=== PATIENT | female | born 1965 | race Caucasian/White ===

== ENCOUNTER 2017-04-07 01:48 | Observation (INO) | payer MEDICAID, OTHER ==
--- NOTE | 2017-04-07 02:17 | ED PDOC ---
Arrival/HPI - General Chief Complaint: Abdominal Pain Time Seen by Provider: 04/07/17 01:54 Historian: Patient - History of Present Illness Narrative History of Present Illness (Text): 04/07/17 02:10 Ivory Tian is a 51 year old female, who denies any significant past medical history, who presents to the Emergency department complaining of chest pain/epigastric pain for 1 hour. Patient denies any fever, chills, shortness of breath, nausea, vomiting, diarrhea, urinary symptoms, back pain, neck pain, headache, dizziness, or any other complaints. Time/Duration: 1 hour Symptom Onset: Gradual Symptom Course: Unchanged Activities at Onset: Rest, Light Context: Home Past Medical History - Provider Review Nursing Documentation Reviewed: Yes - Psychiatric Hx Substance Use: No Family/Social History - Physician Review Nursing Documentation Reviewed: Yes Family/Social History: Unknown Family HX Smoking Status: Never Smoked Hx Alcohol Use: No Hx Substance Use: No Allergies/Home Meds Allergies/Adverse Reactions: Allergies No Known Allergies Allergy (Verified 04/07/17 01:52) Home Medications: Home Meds Medication Instructions Recorded Confirmed No Known Home Med 04/07/17 04/07/17 Review of Systems - Physician Review All systems were reviewed & negative as marked: Yes - Review of Systems Constitutional: Normal. absent: Fevers Eyes: Normal ENT: Normal Respiratory: Normal. absent: SOB, Cough Cardiovascular: Chest Pain Gastrointestinal: Abdominal Pain. absent: Diarrhea, Vomiting Genitourinary Female: Normal. absent: Dysuria, Frequency, Hematuria, Urine Output Changes Musculoskeletal: Normal. absent: Back Pain, Neck Pain Skin: Normal. absent: Rash Neurological: Normal. absent: Headache, Dizziness Endocrine: Normal Hemo/Lymphatic: Normal Psychiatric: Normal Physical Exam Vital Signs Reviewed: Yes Vital Signs Temp Pulse Resp BP Pulse Ox 04/07/17 01:52 97.9 F 66 18 146/87 100 Temperature: Afebrile Blood Pressure: Normal Pulse: Regular Respiratory Rate: Normal Appearance: Positive for: Well-Appearing, Non-Toxic, Comfortable Pain Distress: None Mental Status: Positive for: Alert and Oriented X 3 - Systems Exam Head: Present: Atraumatic, Normocephalic Pupils: Present: PERRL Extroacular Muscles: Present: EOMI Conjunctiva: Present: Normal Mouth: Present: Moist Mucous Membranes Neck: Present: Normal Range of Motion Respiratory/Chest: Present: Clear to Auscultation, Good Air Exchange. No: Respiratory Distress, Accessory Muscle Use Cardiovascular: Present: Regular Rate and Rhythm, Normal S1, S2. No: Murmurs Abdomen: Present: Tenderness (RUQ/epigastric tenderness), Normal Bowel Sounds. No: Distention, Peritoneal Signs Back: Present: Normal Inspection Upper Extremity: Present: Normal Inspection. No: Cyanosis, Edema Lower Extremity: Present: Normal Inspection. No: Edema Neurological: Present: GCS=15, CN II-XII Intact, Speech Normal Skin: Present: Warm, Dry, Normal Color. No: Rashes Psychiatric: Present: Alert, Oriented x 3, Normal Insight, Normal Concentration Medical Decision Making ED Course and Treatment: 04/07/17 02:10 Impression: 51 year old female complaining of chest pain/epigastric pain for 1 hour. Differential Diagnosis included but are not limited to: biliary colic vs. cholecystitis Plan: -- US Gallbladder and Pancreas -- EKG -- Labs, cardiac enzymes, lipase -- IV fluids -- Zofran -- Pepcid -- Morphine -- Reassess and disposition Progress Notes: Reviewed EKG, NSR at 60 bpm[address] Non-specific ST/T wave changes. 04/07/17 04:21 Reviewed sono, US Abdomen shows: There is a negative sonographic Tripp's sign per certified ophthalmic technologist. Gallstones are present. There is a 9 mm echogenic structure along the gallbladder wall that does not exhibit shadowing suggesting it represents a polyp. There is pericholecystic fluid. There are no gallbladder wall measurement submitted. The common bile duct measures 5 mm which is within normal limits. The liver is normal and measures 15.7 cm in length.. The pancreas is normal. No right hydronephrosis. The right kidney measures 11 cm in length. IMPRESSION: Cholelithiasis with pericholecystic fluid, the presence of which is concerning for cholecystitis. HIDA scan may be helpful for confirmation if clinically indicated. 04/07/17 04:32 Case discussed with expert medical writer, who is aware and agrees with plan. 04/07/17 04:[address] Mendez, who is aware and agrees with plan. [facility] colic and cholecystitis. - Lab Interpretations Lab Results: 04/07/17 02:15 04/07/17 02:20 Lab Results 04/07/17 03:35: PT 11.9 H, INR 1.10 H, APTT 24.8 04/07/17 02:20: Sodium 142, Potassium 4.1, Chloride 101, Carbon Dioxide 27, Anion Gap 18, BUN 19, Creatinine 0.6, Est GFR ( Amer) > 60, Est GFR (Non- Af Amer) > 60, Random Glucose 109, Calcium 9.2, Total Bilirubin 0.4, AST 108 H, ALT 50, Alkaline Phosphatase 77, Lactate Dehydrogenase 707 H, Total Creatine Kinase 59, Troponin I < 0.01, Total Protein 6.9, Albumin 4.1, Globulin 2.8, Albumin/Globulin Ratio 1.5, Lipase 218 04/07/17 02:15: WBC 8.5, RBC 4.22, Hgb 12.2, Hct 34.9 L, MCV 82.7, MCH 28.9, MCHC 35.0, RDW 12.4, Plt Count 207, MPV 11.2 H I have reviewed the lab results: Yes - RAD Interpretation Radiology Orders: 04/07/17 02:19 GALLBLADDER & PANCREAS [US] Stat 04/07/17 04:24 CHEST PORTABLE [RAD] Stat Library Circulation Assistant: Radiologist - EKG Interpretation Interpreted by ED Physician: Yes Type: 12 lead EKG - Medication Orders Current Medication Orders: Sodium Chloride (Sodium Chloride 0.9%) 1,000 mls @ 100 mls/hr IV .Q10H JOSSELYN Last Admin: 04/07/17 02:23 Dose: 100 mls/hr Ceftriaxone Sodium (Rocephin 1 Gram Ivpb) 100 mls @ 200 mls/hr IV ONCE STA PRN Reason: Protocol Stop: 04/07/17 05:15 Morphine Sulfate (Morphine) 2 mg IVP Q4 PRN PRN Reason: Pain, severe (8-10) Discontinued Medications Famotidine (Pepcid) 20 mg IVP STAT STA Stop: 04/07/17 02:19 Last Admin: 04/07/17 02:26 Dose: 20 mg Morphine Sulfate (Morphine) 2 mg IVP STAT STA Stop: 04/07/17 02:19 Last Admin: 04/07/17 02:25 Dose: 2 mg Ondansetron HCl (Zofran Inj) Confirm Administered Dose 4 mg .ROUTE .STK-MED ONE Stop: 04/07/17 02:19 Last Admin: 04/07/17 02:24 Dose: Ondansetron HCl (Zofran Inj) 4 mg IVP ONCE ONE Stop: 04/07/17 02:19 Last Admin: 04/07/17 02:26 Dose: 4 mg - Scribe Statement The provider has reviewed the documentation as recorded by the Edilberto Benavides Provider Maggieibdavonte Attestation: All medical record entries made by the Edilberto were at my direction and personally dictated by me. I have reviewed the chart and agree that the record accurately reflects my personal performance of the history, physical exam, medical decision making, and the department course for this patient. I have also personally directed, reviewed, and agree with the discharge instructions and disposition. Disposition/Present on Arrival - Present on Arrival Any Indicators Present on Arrival: No History of DVT/PE: No History of Uncontrolled Diabetes: No Urinary Catheter: No History of Decub. Ulcer: No History Surgical Site Infection Following: None - Disposition Have Diagnosis and Disposition been Completed?: Yes Diagnosis: Cholecystitis, Cholelithiasis, Abdominal pain Disposition: HOSPITALIZED Disposition Time: 04:48 Patient Plan: Admission Condition: STABLE Forms: [place]
[2017-04-07] MEDS ORDERED: Morphine 2 mg/ml ISec IVP STA (02:18)
[2017-04-07] MEDS: Sodium Chloride 0.9% 1,000 ML IV SCH ×2 (02:23→06:00)
[2017-04-07 02:35] LABS: HEMATOCRIT 34.9 % (36.0-48.0); MEAN CELL VOLUME 82.7 fL (80.0-105.0); MEAN CORPUSCULAR HEMOGLOBIN 28.9 pg (25.0-35.0); MEAN PLATELET VOLUME 11.2 fl (7.0-11.0); RED CELL DISTRIBUTION WIDTH 12.4 % (11.5-14.5); WHITE BLOOD COUNT 8.5 10^3/ul (4.5-11.0)
[2017-04-07 03:03] LABS: ALB/GLOB RATIO 1.5 (1.1-1.8); ALKALINE PHOSPHATASE 77 U/L (38-133); ALT/SGPT 50 U/L (7-56); AST/SGOT 108 U/L (15-39); BILIRUBIN,TOTAL 0.4 mg/dL (0.2-1.3); BLOOD UREA NITROGEN 19 mg/dL (7-21); CALCIUM 9.2 mg/dL (8.4-10.5); CARBON DIOXIDE 27 mmol/L (21-33); CHLORIDE 101 mmol/L (98-107); GFR AFRICAN-AMERICAN > 60; GLUCOSE,RANDOM 109 mg/dL (70-110); LIPASE 218 U/L (23-300); POTASSIUM 4.1 mmol/L (3.6-5.0); SODIUM 142 mmol/L (132-148); TOTAL PROTEIN 6.9 g/dL (5.8-8.3)
[2017-04-07 03:16] LABS: TROPONIN I < 0.01 ng/mL
[2017-04-07 03:59] LABS: INR 1.1 (0.93-1.08); PARTIAL THROMBOPLASTIN TIME 24.8 Seconds (23.7-30.8)
--- NOTE | 2017-04-07 04:15 | US ---
EXAM: US Abdomen Limited, Right Upper Quadrant CLINICAL HISTORY: 51 years old, female; Pain; Abdominal pain; Epigastric TECHNIQUE: Real-time ultrasound of the right upper quadrant with image documentation. EXAM DATE/TIME: 04/07/2017 2:19 AM COMPARISON: No relevant prior studies available. FINDINGS: There is a negative sonographic Tripp's sign per 3d technologist. Gallstones are present. There is a 9 mm echogenic structure along the gallbladder wall that does not exhibit shadowing suggesting it represents a polyp. There is pericholecystic fluid. There are no gallbladder wall measurement submitted. The common bile duct measures 5 mm which is within normal limits. The liver is normal and measures 15.7 cm in length.. The pancreas is normal. No right hydronephrosis. The right kidney measures 11 cm in length. IMPRESSION: Cholelithiasis with pericholecystic fluid, the presence of which is concerning for cholecystitis. HIDA scan may be helpful for confirmation if clinically indicated.
[2017-04-07] MEDS ORDERED: Morphine 2 mg/ml ISec IVP PRN (04:40)
[2017-04-07] MEDS ORDERED: metroNIDAZOLE IV 500 mg/100 ml 500 MG/100 ML BAG IVPB STA (04:46)
[2017-04-07] MEDS ORDERED: cefTRIAXone 1 gm 1 GM/100 ML BAG IV STA (04:46)
--- NOTE | 2017-04-07 05:19 | CP.PCM.HP ---
<BISI SARAVIA - Last Filed: 04/07/17 05:44> History of Present Illness - History of Present Illness History of Present Illness: CC: abdominal pain/chest pain HPI: Mrs. Tian is a 51 year old female who has a past medical history of migraines who presented complaining of chest pain/epigastric pain for 1 hour. Patient states that she woke up around 1:30 this morning to chest tightness and epigastric pain that she describes as a sharp tightness. She then became nauseated but reports no vomiting. She took no medications and had no alleviating or aggravating factors. A gallbladder ultrasound showed likely cholelithiasis. An EKG showed NSR. Patient was given a dose of morphine in the ED for pain. Currently patient is asymptomatic and has no complaints. Patient denies any fever, chills, shortness of breath, nausea, vomiting, diarrhea, urinary symptoms , back pain, neck pain, headache, dizziness, or any other complaints. PMH: Migraines PSH: (2003) Family History: Father-Lung Cancer Social History: Denies tobacco, alcohol, or illicit drug use Allergies: None Home Medications: none Present on Admission - Present on Admission Any Indicators Present on Admission: No Review of Systems - Review of Systems Review of Systems: Please refer to HPI Past Patient History - Past Social History Smoking Status: Never Smoked - PSYCHIATRIC Hx Substance Use: No - SURGICAL HISTORY Hx Surgeries: No Meds Allergies/Adverse Reactions: Allergies Allergy/AdvReac Type Severity Reaction Status Date / Time No Known Allergies Allergy Verified 04/07/17 01:52 Physical Exam - Constitutional Appears: No Acute Distress - Head Exam Head Exam: NORMAL INSPECTION, NORMOCEPHALIC - Eye Exam Eye Exam: EOMI, Normal appearance - ENT Exam ENT Exam: Mucous Membranes Moist, Normal Exam - Neck Exam Neck exam: Positive for: Full Rom. Negative for: Lymphadenopathy - Respiratory Exam Respiratory Exam: Clear to Auscultation Bilateral, NORMAL BREATHING PATTERN. absent: Rales, Rhonchi, Wheezes, Respiratory Distress - Cardiovascular Exam Cardiovascular Exam: REGULAR RHYTHM, RRR, +S1, +S2. absent: Tachycardia, Systolic Murmur - GI/Abdominal Exam GI & Abdominal Exam: Normal Bowel Sounds, Soft. absent: Distended, Firm, Tenderness - Extremities Exam Extremities exam: Positive for: normal capillary refill, pedal pulses present. Negative for: calf tenderness, pedal edema - Neurological Exam Neurological exam: Alert, Oriented x3 - Psychiatric Exam Psychiatric exam: Normal Affect, Normal Mood - Skin Skin Exam: Dry, Intact, Normal Color, Warm Results - Vital Signs Recent Vital Signs: Last Vital Signs Temp 97.9 F 04/07/17 01:52 Pulse 66 04/07/17 01:52 Resp 18 04/07/17 01:52 BP 146/87 04/07/17 01:52 Pulse Ox 100 04/07/17 01:52 - Labs Result Diagrams: 04/07/17 02:15 04/07/17 02:20 Assessment & Plan - Assessment and Plan (Free Text) Assessment: Mrs. Tian is a 51 year old female who has a past medical history of migraines who presented complaining of chest pain/epigastric pain Plan: 1. Cholecystitis -surgery consulted, all recs appreciated -HIDA scan ordered; report pending -rocephin and flagyl one time order -morphine for pain control -IVF: NS at 100mls/hr -afebrile, WBC wnl, normotensive, non-tachycardic -NPO for possible surgical procedure 2. Chest Pain -EKG showed NSR with non-specific ST-T wave changes -troponins x1 negative;serial trops pending -start ASA, Statin -TSH, Lipid panel, A1C pending -remote telemetry 3. GI/DVT Prophylaxis -protonix/scd's Patient seen and case discussed with attending, Dr. Mendez. - Date & Time Date: 04/07/17 Time: 05:20 Decision To Admit - Pt Status Changed To: Hospital Disposition Of: Observation - . Bed Request Type: Remote Telemetry Admitting Physician: Maxime Mendez <Maxime Mendez - Last Filed: 04/08/17 21:11> Results - Vital Signs Recent Vital Signs: Last Vital Signs Temp 97.9 F 04/08/17 06:00 Pulse 20 L 04/08/17 06:00 Resp 62 H 04/08/17 06:00 BP 120/73 04/08/17 06:00 Pulse Ox 100 04/08/17 06:00 - Labs Result Diagrams: 04/07/17 02:15 04/07/17 02:20 Labs: Laboratory Results - last 24 hr 07/31/17 07:09 POC Glucose (mg/dL) 150 H Attending/Attestation - Attestation I have personally seen and examined this patient.: Yes I have fully participated in the care of the patient.: Yes I have reviewed all pertinent clinical information: Yes
--- NOTE | 2017-04-07 05:20 | CP.PCM.CON ---
History of Present Illness - History of Present Illness History of Present Illness: General Surgery Consult Note- Dr. Kan CC: Abd pain 51F w/ no remarkable PMHx presented to the ED this AM with chest tightness and diffuse abdominal pain that localized the the RUQ that started this morning at 01:30. Pain has decreased since being the the ED. Had soup prior the the abdominal pain. Pt has never experienced similar symptoms like this before. + nausea, denies vomiting, diarrhea, SOB [place], F/C/ numbness or tingling in the extremeties PMH: gestational HTN PSH: x2- 12yrs ago ALL: NKDA SocialHx: denies smoking, drinking, illicit drug use Past Patient History - Past Social History Smoking Status: Never Smoked - PSYCHIATRIC Hx Substance Use: No - SURGICAL HISTORY Hx Surgeries: No Meds Allergies/Adverse Reactions: Allergies Allergy/AdvReac Type Severity Reaction Status Date / Time No Known Allergies Allergy Verified 04/07/17 01:52 - Medications Medications: Current Medications Acetaminophen (Tylenol 325mg Tab) 650 mg PO Q6H PRN PRN Reason: Fever >100.4 F Sodium Chloride (Sodium Chloride 0.9%) 1,000 mls @ 100 mls/hr IV .Q10H JOSSELYN Last Admin: 04/07/17 02:23 Dose: 100 mls/hr Metronidazole (Flagyl) 500 mg in 100 mls @ 100 mls/hr IVPB STAT STA PRN Reason: Protocol Stop: 04/07/17 05:45 Morphine Sulfate (Morphine) 2 mg IVP Q4 PRN PRN Reason: Pain, severe (8-10) Ondansetron HCl (Zofran Inj) 4 mg IVP Q4H PRN PRN Reason: Nausea/Vomiting Pantoprazole Sodium (Protonix Inj) 40 mg IVP DAILY JOSSELYN Results - Vital Signs Recent Vital Signs: Last Vital Signs Temp 97.9 F 04/07/17 01:52 Pulse 66 04/07/17 01:52 Resp 18 04/07/17 01:52 BP 146/87 04/07/17 01:52 Pulse Ox 100 04/07/17 01:52 - Labs Result Diagrams: 04/07/17 02:15 04/07/17 02:20 Assessment & Plan - Assessment and Plan (Free Text) Assessment: 51F w/ diffuse abd pain localized to RUQ Plan: - Pt currently feeling better after being moved to the floors - start on clears, advance diet as tolerated - Pt can follow up as outpt at clinic if she feels better D/W Dr. Bryon Meeks PGY1
[2017-04-07 09:01] LABS: CHOLESTEROL 167 mg/dL (130-200)
[2017-04-07 09:26] VITALS: BMI 23.4
--- NOTE | 2017-04-07 09:40 | RAD ---
HISTORY: epigastric pain COMPARISON: No prior. FINDINGS: LUNGS: No active pulmonary disease. PLEURA: No significant pleural effusion identified, no pneumothorax apparent. CARDIOVASCULAR: Normal. OSSEOUS STRUCTURES: No significant abnormalities. VISUALIZED UPPER ABDOMEN: Normal. OTHER FINDINGS: None. IMPRESSION: No active disease.
--- NOTE | 2017-04-07 10:08 | CARD ---
APPROVED REPORT EKG Measurement Heart [id number] <Conclusion> Normal sinus rhythm Minimal voltage criteria for LVH, may be normal variant
[2017-04-08 06:35] VITALS: BP 120/73; TEMP 97.9; O2SAT 100
--- NOTE | 2017-04-08 08:09 | CP.PCM.PN ---
Subjective - Date & Time of Evaluation Date of Evaluation: 04/08/17 Time of Evaluation: 07:40 - Subjective Subjective: Patient seen and examined. No acute events overnight. Patient is resting comfortably in bed. Admits to headache. Denies fever, chills, chest pain, SOB, abdominal pain, N/V. Objective - Vital Signs/Intake and Output Vital Signs (last 24 hours): Temp Pulse Resp BP Pulse Ox 97.9 F 62 20 120/73 100 04/08/17 06:00 04/08/17 06:00 04/08/17 06:00 04/08/17 06:00 04/08/17 06:00 Intake and Output: 04/08/17 04/08/17 06:59 18:59 Intake Total 540 500 Balance 540 500 - Medications Medications: Current Medications Acetaminophen (Tylenol 325mg Tab) 650 mg PO Q6H PRN PRN Reason: Fever >100.4 F Aspirin (Aspirin Chewable) 81 mg PO DAILY [facility] Last Admin: 04/07/17 06:28 Dose: 81 mg Atorvastatin Calcium (Lipitor) 40 mg PO DIN [facility] Last Admin: 04/07/17 18:16 Dose: 40 mg Sodium Chloride (Sodium Chloride 0.9%) 1,000 mls @ 100 mls/hr IV .Q10H [facility] Last Admin: 04/07/17 06:00 Dose: 100 mls/hr Morphine Sulfate (Morphine) 2 mg IVP Q4 PRN PRN Reason: Pain, severe (8-10) Ondansetron HCl (Zofran Inj) 4 mg IVP Q4H PRN PRN Reason: Nausea/Vomiting Pantoprazole Sodium (Protonix Inj) 40 mg IVP DAILY [facility] Last Admin: 04/07/17 10:00 Dose: 40 mg - Labs Labs: PT 11.9 Seconds (9.9-11.8) H 04/07/17 03:35 INR 1.10 (0.93-1.08) H 04/07/17 03:35 APTT 24.8 Seconds (23.7-30.8) 04/07/17 03:35 - Additional Findings Additional findings: - Constitutional Appears: No Acute Distress - Head Exam Head Exam: NORMAL INSPECTION, NORMOCEPHALIC - Eye Exam Eye Exam: EOMI, Normal appearance - ENT Exam ENT Exam: Mucous Membranes Moist, Normal Exam - Neck Exam Neck exam: Positive for: Full Rom. Negative for: Lymphadenopathy - Respiratory Exam Respiratory Exam: Clear to Auscultation Bilateral, NORMAL BREATHING PATTERN. absent: Rales, Rhonchi, Wheezes, Respiratory Distress - Cardiovascular Exam Cardiovascular Exam: REGULAR RHYTHM, RRR, +S1, +S2. absent: Tachycardia, Systolic Murmur - GI/Abdominal Exam GI & Abdominal Exam: Normal Bowel Sounds, Soft. absent: Distended, Firm, Tenderness - Extremities Exam Extremities exam: Positive for: normal capillary refill, pedal pulses present. Negative for: calf tenderness, pedal edema - Neurological Exam Neurological exam: Alert, Oriented x3 - Psychiatric Exam Psychiatric exam: Normal Affect, Normal Mood - Skin Skin Exam: Dry, Intact, Normal Color, Warm Assessment and Plan - Assessment and Plan (Free Text) Assessment: Mrs. Tian is a 51 year old female who has a past medical history of migraines who was admitted to the hospital for evaluation and treatment of 51F w / diffuse abd pain localized to RUQ. - States abdominal pain has resolved - tolerating diet - No surgical intervention at this time - Pt can follow up as outpt at clinic Will d/w Dr. Slater
[2017-04-08 09:38] VITALS: PULSE 20; RESP 62
--- NOTE | 2017-04-08 13:50 | CP.PCM.DIS ---
<Jeannette Sandhu - Last Filed: 04/08/17 14:00> Provider - Provider Date of Admission: 04/07/17 04:48 Attending physician: Dylan Antony MD Primary care physician: Michel Ferris MD Consults: Surgery: Loreta Time Spent in preparation of Discharge (in minutes): 45 Hospital Course - Lab Results Lab Results: Micro Results 04/07/17 05:20 Blood Blood Culture - Preliminary NO GROWTH AFTER 24 HOURS 04/07/17 05:00 Blood Blood Culture - Preliminary NO GROWTH AFTER 24 HOURS Most Recent Lab Values WBC 8.5 10^3/ul (4.5-11.0) 04/07/17 02:15 RBC 4.22 10^6/uL (3.5-6.1) 04/07/17 02:15 Hgb 12.2 gm/dL (12.0-16.0) 04/07/17 02:15 Hct 34.9 % (36.0-48.0) L 04/07/17 02:15 MCV 82.7 fL (80.0-105.0) 04/07/17 02:15 MCH 28.9 pg (25.0-35.0) 04/07/17 02:15 MCHC 35.0 g/dl (31.0-37.0) 04/07/17 02:15 RDW 12.4 % (11.5-14.5) 04/07/17 02:15 Plt Count 207 10^3/uL (120.0-450.0) 04/07/17 02:15 MPV 11.2 fl (7.0-11.0) H 04/07/17 02:15 PT 11.9 Seconds (9.9-11.8) H 04/07/17 03:35 INR 1.10 (0.93-1.08) H 04/07/17 03:35 APTT 24.8 Seconds (23.7-30.8) 04/07/17 03:35 Sodium 142 mmol/L (132-148) 04/07/17 02:20 Potassium 4.1 mmol/L (3.6-5.0) 04/07/17 02:20 Chloride 101 mmol/L (98-107) 04/07/17 02:20 Carbon Dioxide 27 mmol/L (21-33) 04/07/17 02:20 Anion Gap 18 (10-20) 04/07/17 02:20 BUN 19 mg/dL (7-21) 04/07/17 02:20 Creatinine 0.6 mg/dL (0.5-1.4) 04/07/17 02:20 Est GFR ( Amer) > 60 04/07/17 02:20 Est GFR (Non-Af Amer) > 60 04/07/17 02:20 POC Glucose (mg/dL) 150 mg/dL (65-110) H 04/07/17 07:09 Random Glucose 109 mg/dL (70-110) 04/07/17 02:20 Hemoglobin A1c 5.0 % (4.2-6.5) 04/07/17 08:00 Calcium 9.2 mg/dL (8.4-10.5) 04/07/17 02:20 Total Bilirubin 0.4 mg/dL (0.2-1.3) 04/07/17 02:20 AST 108 U/L (15-39) H 04/07/17 02:20 ALT 50 U/L (7-56) 04/07/17 02:20 Alkaline Phosphatase 77 U/L (38-133) 04/07/17 02:20 Lactate Dehydrogenase 707 U/L (333-699) H 04/07/17 02:20 Total Creatine Kinase 59 U/L (35-230) 04/07/17 02:20 Troponin I < 0.01 ng/mL 04/07/17 13:50 Total Protein 6.9 g/dL (5.8-8.3) 04/07/17 02:20 Albumin 4.1 g/dL (3.0-4.8) 04/07/17 02:20 Globulin 2.8 gm/dL 04/07/17 02:20 Albumin/Globulin Ratio 1.5 (1.1-1.8) 04/07/17 02:20 Triglycerides 79 mg/dL (35-160) 04/07/17 08:00 Cholesterol 167 mg/dL (130-200) 04/07/17 08:00 LDL Cholesterol Direct 111 mg/dL (0-129) 04/07/17 08:00 HDL Cholesterol 46 mg/dL (29-60) 04/07/17 08:00 Lipase 218 U/L (23-300) 04/07/17 02:20 TSH 3rd Generation 1.96 mIU/mL (0.46-4.68) 04/07/17 08:00 - Hospital Course Hospital Course: 51 year old female who has a past medical history of migraines who presented complaining of chest pain/epigastric pain for 1 hour. Patient states that she woke up around 1:30 this morning to chest tightness and epigastric pain that she describes as a sharp tightness. She then became nauseated but reports no vomiting. She took no medications and had no alleviating or aggravating factors. A gallbladder ultrasound showed likely cholelithiasis and pericholecytsic fluid with what appears to be a gallbladder polyp. An EKG showed NSR. Patient was admitted and surgery was consulted for cholelithiasis. Surgery evaluated the patient and diet was slowly advanced as tolerated. Prior to discharge patient was tolerating regular diet and instructed to follow up with surgical clinic for elective cholecystectomy. During this admission patient was monitored on telemetry. Cardiac enzymes were negative x 3. Prior to discharge patient reports that chest/epigastric pain had resolved. On April 08, 2017, patient was medically stable and discharged with prescriptions for Tramadol and protonix. Patient is follow up with PCP within 1 week of discharge. Discharge Exam - Head Exam Head Exam: NORMAL INSPECTION, NORMOCEPHALIC - Eye Exam Eye Exam: EOMI, Normal appearance Pupil Exam: NORMAL ACCOMODATION - ENT Exam ENT Exam: Mucous Membranes Moist - Respiratory Exam Respiratory Exam: Clear to PA & Lateral, NORMAL BREATHING PATTERN, UNREMARKABLE. absent: Rales, Rhonchi, Wheezes, Respiratory Distress - Cardiovascular Exam Cardiovascular Exam: REGULAR RHYTHM, +S1, +S2. absent: Tachycardia - GI/Abdominal Exam GI & Abdominal Exam: Normal Bowel Sounds, Soft. absent: Guarding, Rebound, Rigid, Tenderness - Extremities Exam Extremities exam: normal capillary refill, normal inspection, pedal pulses present - Back Exam Back exam: NORMAL INSPECTION - Neurological Exam Neurological exam: Alert, Oriented x3 - Psychiatric Exam Psychiatric exam: Normal Affect, Normal Mood - Skin Skin Exam: Normal Color, Warm Discharge Plan - Discharge Medications Prescriptions: Pantoprazole Sodium [Protonix] 40 mg PO DAILY #30 ect traMADol [Ultram] 50 mg PO Q8H PRN #10 tab PRN Reason: Pain, Moderate (4-7) - Follow Up Plan Condition: STABLE Disposition: HOME/ ROUTINE Instructions: Cholecystitis (DC), Cholecystitis (GEN), Gallstones (DC), Gallstones (GEN), Acute Abdominal Pain (DC), Acute Abdominal Pain (GEN) Additional Instructions: Patient is clear for d/c home, patient to follow up with general surgery in 1-2 weeks for follow up, patient also to f/u with PCP within 1 week; Prescription for Tramadol 50mg Q8H prn pain given Referrals: Michel Ferris MD [Primary Care Provider] - <Dylan Antony - Last Filed: 04/08/17 18:09> Provider - Provider Date of Admission: 04/07/17 04:48 Attending physician: Dylan Antony MD Primary care physician: Michel Ferris MD Hospital Course - Lab Results Lab Results: Micro Results 04/07/17 05:20 Blood Blood Culture - Preliminary NO GROWTH AFTER 24 HOURS 04/07/17 05:00 Blood Blood Culture - Preliminary NO GROWTH AFTER 24 HOURS Most Recent Lab Values WBC 8.5 10^3/ul (4.5-11.0) 04/07/17 02:15 RBC 4.22 10^6/uL (3.5-6.1) 04/07/17 02:15 Hgb 12.2 gm/dL (12.0-16.0) 04/07/17 02:15 Hct 34.9 % (36.0-48.0) L 04/07/17 02:15 MCV 82.7 fL (80.0-105.0) 04/07/17 02:15 MCH 28.9 pg (25.0-35.0) 04/07/17 02:15 MCHC 35.0 g/dl (31.0-37.0) 04/07/17 02:15 RDW 12.4 % (11.5-14.5) 04/07/17 02:15 Plt Count 207 10^3/uL (120.0-450.0) 04/07/17 02:15 MPV 11.2 fl (7.0-11.0) H 04/07/17 02:15 PT 11.9 Seconds (9.9-11.8) H 04/07/17 03:35 INR 1.10 (0.93-1.08) H 04/07/17 03:35 APTT 24.8 Seconds (23.7-30.8) 04/07/17 03:35 Sodium 142 mmol/L (132-148) 04/07/17 02:20 Potassium 4.1 mmol/L (3.6-5.0) 04/07/17 02:20 Chloride 101 mmol/L (98-107) 04/07/17 02:20 Carbon Dioxide 27 mmol/L (21-33) 04/07/17 02:20 Anion Gap 18 (10-20) 04/07/17 02:20 BUN 19 mg/dL (7-21) 04/07/17 02:20 Creatinine 0.6 mg/dL (0.5-1.4) 04/07/17 02:20 Est GFR ( Amer) > 60 04/07/17 02:20 Est GFR (Non-Af Amer) > 60 04/07/17 02:20 POC Glucose (mg/dL) 150 mg/dL (65-110) H 04/07/17 07:09 Random Glucose 109 mg/dL (70-110) 04/07/17 02:20 Hemoglobin A1c 5.0 % (4.2-6.5) 04/07/17 08:00 Calcium 9.2 mg/dL (8.4-10.5) 04/07/17 02:20 Total Bilirubin 0.4 mg/dL (0.2-1.3) 04/07/17 02:20 AST 108 U/L (15-39) H 04/07/17 02:20 ALT 50 U/L (7-56) 04/07/17 02:20 Alkaline Phosphatase 77 U/L (38-133) 04/07/17 02:20 Lactate Dehydrogenase 707 U/L (333-699) H 04/07/17 02:20 Total Creatine Kinase 59 U/L (35-230) 04/07/17 02:20 Troponin I < 0.01 ng/mL 04/07/17 13:50 Total Protein 6.9 g/dL (5.8-8.3) 04/07/17 02:20 Albumin 4.1 g/dL (3.0-4.8) 04/07/17 02:20 Globulin 2.8 gm/dL 04/07/17 02:20 Albumin/Globulin Ratio 1.5 (1.1-1.8) 04/07/17 02:20 Triglycerides 79 mg/dL (35-160) 04/07/17 08:00 Cholesterol 167 mg/dL (130-200) 04/07/17 08:00 LDL Cholesterol Direct 111 mg/dL (0-129) 04/07/17 08:00 HDL Cholesterol 46 mg/dL (29-60) 04/07/17 08:00 Lipase 218 U/L (23-300) 04/07/17 02:20 TSH 3rd Generation 1.96 mIU/mL (0.46-4.68) 04/07/17 08:00 Attending/Attestation - Attestation I have personally seen and examined this patient.: Yes I have fully participated in the care of the patient.: Yes I have reviewed all pertinent clinical information, including history, physical exam and plan: Yes Notes (Text): 04/08/17 18:06 51 year old female who presented with complaint of chest pain and epigastric pain. Serial cardiac enzymes were negative and ACS was ruled out. Abdominal ultrasound showed cholelithiasis and pericholecystic fluid. She was seen by surgery who recommended elective cholecystectomy. Her symptoms improved. She is tolerating diet. Today she has no RUQ or epigastric pain. Chest pain also resolved yesterday. She is discharged home today to follow up with her pmd. Follow up with surgery within one week. Counselled on low fat, low cholesterol diet. Dylan Antony MD Hospitalist.
== END 2017-04-08 14:51 | disposition home or self-care (01) ==
LOC: ED 01:48 → INTOOBSV 04:48 → ERH 04:48 → 5RSO 05:50 → 3RSO 08:53
PROVIDERS: ADMIT Internal Medicine; ATTEND Internal Medicine
DX: K80.10 Calculus of gallbladder with chronic cholecystitis without obstruction (principal); R10.13 Epigastric pain; G43.909 Migraine, unspecified, not intractable, without status migrainosus; R07.89 Other chest pain; Z80.1 Family history of malignant neoplasm of trachea, bronchus and lung
CPT/HCPCS: 71010; 76705; 80053; 80061; 82550; 82948; 83036; 83615; 83690; 84443; 84484; 85027; 85610; 85730; 87040; 93005; 96374; 96375; 99285; C9113; G0378; J0696; J2270; J2405; J7040